=== PATIENT | male | born 1955 | race Two or more races ===

== ENCOUNTER 2017-02-25 21:49 | Inpatient (IN) | payer OTHER ==
[~2017-02-25] VITALS: Ht 172.7 cm; Wt 87.1 kg
--- NOTE | 2017-02-25 22:00 | NUR ---
PT A/OX4 BREATHING EFFORTLESSLY ON ROOM AIR, PT STATES HE HAS BEEN HVAING CP X 2 SDAYS BUT HAS BEEN GETTING WORSE TODAY, IV PLACED PRIOR TO ARRIVAL BY EMS, PT GIVEN ASPIRIN AND NITRO PRIOR TO ARRIVAL, PT ON MONITOR, IN GOWN MD AT BEDSIDE WILL CONTINUE TO MONITOR.
[2017-02-25] MEDS ORDERED: DILTIAZEM HCL 25 MG IV ONE (22:13)
[2017-02-25] MEDS ORDERED: DILTIAZEM HCL 25 MG IV IV ONE (22:30)
[2017-02-25 22:39] LABS: BASOPHILS # (AUTO) 0.1 /CMM (0.0-0.2); BASOPHILS % (AUTO) 0.9 % (0.0-2.0); EOSINOPHILS # (AUTO) 0.2 /CMM (0.0-0.7); EOSINOPHILS % (AUTO) 2.3 % (0.0-6.0); HEMATOCRIT 44 % (39-51); HEMOGLOBIN 13.7 g/dL (13.5-17.5); LYMPHOCYTES # (AUTO) 2.7 /CMM (0.8-4.8); LYMPHOCYTES % (AUTO) 31.2 % (20.0-44.0); MEAN CORPUSCULAR HEMOGLOBIN 24 PG (26.0-33.0); MEAN CORPUSCULAR HGB CONC 32 g/dl (31.0-36.0); MEAN CORPUSCULAR VOLUME 77 fL (80-96); MONOCYTES # (AUTO) 1.1 /CMM (0.1-1.30); MONOCYTES % (AUTO) 12.4 % (2.0-12.0); NEUTROPHILS # (AUTO) 4.6 /CMM (1.8-8.9); NEUTROPHILS % (AUTO) 53.2 % (43.0-81.0); PLATELET COUNT (AUTO) 219 /CMM (150-450); RDW COEFFICIENT OF VARIATION 21.1 (11.5-15.0); RED BLOOD CELL COUNT(AUTO) 5.67 MIL/uL (4.5-6.0); WHITE BLOOD COUNT (AUTO) 8.7 K/uL (4.3-11.0)
[2017-02-25 22:51] LABS: CALCIUM, SERUM 9.2 mg/dL (8.5-10.1); CARBON DIOXIDE 27 mmol/L (21-32); CHLORIDE 100 mmol/L (98-107); CREATININE 1.1 mg/dL (0.6-1.3); GFR 69 mL/min (>60); GLUCOSE 92 mg/dL (74-106); POTASSIUM 4.1 mmol/L (3.5-5.1); SODIUM SERUM 136 mmol/L (136-145); UREA NITROGEN, BLOOD 18 mg/dL (7-18)
[2017-02-25 22:58] LABS: TROPONIN I < 0.017 ng/mL (0.00-0.056)
[2017-02-25 23:04] LABS: B-TYPE NATRIURETIC PEPTIDE 14171 PG/ML (0-125)
[2017-02-25] MEDS ORDERED: FUROSEMIDE 40 MG/4 ML VIAL ONE (23:05)
[2017-02-25] MEDS ORDERED: FUROSEMIDE 40 MG/4 ML VIAL IV STA (23:06)
[2017-02-25 23:08] LABS: INR 1.2 (0.87-1.13)
--- NOTE | 2017-02-25 23:23 | NUR ---
PT STATES HE IS FEELING BETTER, MD MADE AWARE WILL CONTINUE TO MONITOR.
--- NOTE | 2017-02-25 23:55 | NUR ---
TELE/RN RECEIVE PATIENT FROM [facility] AWAKE, ALERT, ORIENTED, WITH C/O TOLERABLE PAIN LEVEL IN THE RIGHT CHEST, NO DISTRESS NOTED, VITAL SIGNS STABLE. DR. SHORT AT BEDSIDE AT THIS TIME TALKING TO THE PATIENT. AFTER DR. SHORT LEFT THE ROOM, ADMISSION ASSESSMENT WAS DONE. PHYSICAL ASSESSMENT WAS DONE, PLAN OF CARE DISCUSSED, VERBALIZED UNDERSTANDING AND AGREEMENT. TAUGHT THE USE OF CALL LIGHT AND PLACED AT BEDSIDE WITHIN REACH. FALL PRECAUTION INSTITUTED. WILL MONITOR.
[2017-02-26] VITALS (7 sets, daily range): BP systolic 104–115; BP diastolic 66–80
[2017-02-26] MEDS ORDERED: Z GUARD REMEDY 2 OZ OINT TP PRN
[2017-02-26] MEDS ORDERED: MAGNESIUM HYDROXIDE 30 ML UDC PO PRN
[2017-02-26] MEDS ORDERED: MAG HYDROX/AL HYDROX/SIMETH 30 ML UDC PO PRN
[2017-02-26] MEDS ORDERED: ACETAMINOPHEN 325 MG TABLET PO PRN
[2017-02-26] MEDS ORDERED: ZOLPIDEM TARTRATE 5 MG TABLET PO PRN
[2017-02-26] MEDS ORDERED: MORPHINE SULFATE INJ 2 MG/ML DISP.SYRIN IV PRN
[2017-02-26] MEDS ORDERED: ENOXAPARIN SODIUM 40 MG/0.4 ML DISP.SYRIN SQ SCH
[2017-02-26] MEDS ORDERED: ONDANSETRON HCL/PF 4 MG/2 ML VIAL IVP PRN
[2017-02-26] MEDS ORDERED: HYDROCODONE/APAP 5/325MG 1 EACH TABLET PO PRN
[2017-02-26] MEDS ORDERED: ENOXAPARIN SODIUM 40 MG/0.4 ML DISP.SYRIN SQ ONE (00:58)
--- NOTE | 2017-02-26 04:20 | NUR ---
TELE/RN APPEAR SLEEPING, APPEAR COMFORTABLE, BREATHING EVEN AND UNLABORED. CALL LIGHT IN REACH. WILL CONTINUE TO MONITOR.
[2017-02-26 07:24] LABS: BASOPHILS # (AUTO) 0.1 /CMM (0.0-0.2); BASOPHILS % (AUTO) 1.1 % (0.0-2.0); EOSINOPHILS # (AUTO) 0.3 /CMM (0.0-0.7); EOSINOPHILS % (AUTO) 3.9 % (0.0-6.0); HEMATOCRIT 40 % (39-51); HEMOGLOBIN 12.7 g/dL (13.5-17.5); LYMPHOCYTES # (AUTO) 2.8 /CMM (0.8-4.8); LYMPHOCYTES % (AUTO) 35.3 % (20.0-44.0); MEAN CORPUSCULAR HEMOGLOBIN 24 PG (26.0-33.0); MEAN CORPUSCULAR HGB CONC 32 g/dl (31.0-36.0); MEAN CORPUSCULAR VOLUME 77 fL (80-96); MONOCYTES # (AUTO) 0.9 /CMM (0.1-1.30); MONOCYTES % (AUTO) 11.9 % (2.0-12.0); NEUTROPHILS # (AUTO) 3.8 /CMM (1.8-8.9); NEUTROPHILS % (AUTO) 47.8 % (43.0-81.0); PLATELET COUNT (AUTO) 193 /CMM (150-450); RDW COEFFICIENT OF VARIATION 21.3 (11.5-15.0); RED BLOOD CELL COUNT(AUTO) 5.21 MIL/uL (4.5-6.0); WHITE BLOOD COUNT (AUTO) 7.9 K/uL (4.3-11.0)
[2017-02-26 08:07] LABS: ALBUMIN 3.3 g/dL (3.4-5.0); BILIRUBIN,TOTAL 1.4 mg/dL (0.2-1.0); CALCIUM, SERUM 8.4 mg/dL (8.5-10.1); CREATININE 0.9 mg/dL (0.6-1.3); MAGNESIUM 1.7 mg/dL (1.8-2.4); PHOSPHORUS 3.9 mg/dL (2.5-4.9); TOTAL PROTEIN, SERUM 7.3 g/dL (6.4-8.2)
[2017-02-26 08:09] LABS: THYROID STIMULATING HORMONE 1.172 uIU/mL (0.358-3.74)
[2017-02-26] MEDS ORDERED: FUROSEMIDE 40 MG/4 ML VIAL IV SCH (09:00)
[2017-02-26] MEDS: PANTOPRAZOLE 40 MG TABLET.DR PO SCH (09:37)
[2017-02-26] MEDS ORDERED: REGADENOSON 0.4 MG/5 ML DISP.SYRIN IVP ONE (10:30)
--- NOTE | 2017-02-26 12:01 | NUR ---
rn nOTES vERIFIED PATIENT'S UNDERSTANDING ON THE RISK AND BENEFIT OF nm MYOCARDIAL STRESS TEST EXPLAINED BY DR. MALDONADO, CONSENT SECURED.
[2017-02-26] MEDS: CARVEDILOL 12.5 MG TABLET PO SCH ×2 (12:06→21:25)
[2017-02-26] MEDS ORDERED: IV SET PRIMARY PUMP SET 1 EA INFUS.SET MC ONE (13:58)
[2017-02-26] MEDS: Magnesium 1GM/D5W 100ML PREMIX 100 ML IV SCH ×2 (14:02→15:50)
--- NOTE | 2017-02-26 19:05 | NUR ---
RN NOTES RECEIVED PT AWAKE, HOB ELEVATED, PT ALERT AND ORIENTED X 2-3, DENIES ANY PAIN AND DISCOMFORT. PT APPEARS COMFORTABLE IN BED, NO SOB, NOT IN DISTRESS, TOLERATING ROOM AIR. IV ACCESS ON RIGHT FOREARM PATENT AND INTACT. ASSISTED TO THE BATHROOM. FALL PRECAUTION OBSERVED. KEPT COMFORTABLE AND ATTENDED. WILL CONTINUE TO MONITOR PT.
[2017-02-26] MEDS: ENOXAPARIN SODIUM 40 MG/0.4 ML DISP.SYRIN SQ SCH (21:25)
--- NOTE | 2017-02-26 21:25 | NUR ---
RN NOTES BLOOD PRESSURE CHECKED 115/80, HR 106 DUE COREG 12.5 MG TAB GIVEN PO. WILL CONTINUE TO MONITOR PT.
--- NOTE | 2017-02-27 01:22 | NUR ---
RN NOTES PT HAS DIFFICULTY SLEEPING, AMBIEN 5 MG TAB GIVEN PO. WILL CONTINUE TO MONITOR.
--- NOTE | 2017-02-27 06:42 | NUR ---
RN NOTES VISITED BY DR MALDONADO, SEEN AND EXAMINED PT WITH NEW ORDERS MADE. PT WILL START K-DUR 20 MEQ TAB PO QD, LASIX 40 MG TAB PO QD AND PRINIVIL 10 MG TAB PO QD., ALL TO BE STARTED AT 9AM TODAY. PT AWARE. NOTED AND CARRIED OUT.
--- NOTE | 2017-02-27 06:58 | NUR ---
RN NOTES PT ASLEEP, APPEARS COMFORTABLE IN BED, NO SOB, NOT IN DISTRESS, ON ROOM AIR AND TOLERATED WELL. VITAL SIGNS STABLE, NO COMPLAIN OF CHEST PAIN, NO EPISODE OF NAUSEA AND VOMITING. ALL NEEDS ATTENDED. ASSISTED TO THE BATH ROOM, FALL PRECAUTION OBSERVED.WILL ENDORSE TO MORNING RN FOR CONTINUITY OF CARE.
--- NOTE | 2017-02-27 07:15 | NUR ---
MS/RN AM NOTES RECEIVED PATIENT IN BED, SLEEPING, WITHOUT EVIDENCE OF PAIN OR SOB, COMFORTABLE, ON RA, NO DISTRESS NOTED. BED IN LOW POSITION, 2 SR UP FOR SAFETY.. IV LINE ON RIGHT HAND INTACT, NO REDNESS. APPEARS COMFORTABLE IN THE BED, WITH CALL LIGHT WITHIN EASY REACH. WILL CONTINUE TO MONITOR ACCORDINGLY.
[2017-02-27 07:33] LABS: CALCIUM, SERUM 8.6 mg/dL (8.5-10.1); CREATININE 0.9 mg/dL (0.6-1.3); MAGNESIUM 2.1 mg/dL (1.8-2.4); POTASSIUM 4.2 mmol/L (3.5-5.1)
[2017-02-27 08:00] VITALS: BP_SYST 108; BP_SYST 118; BP_DIAS 63; BP_DIAS 69
[2017-02-27] MEDS ORDERED: FUROSEMIDE 40 MG TABLET PO SCH (09:00)
[2017-02-27] MEDS: CARVEDILOL 12.5 MG TABLET PO SCH ×2 (09:24→21:00)
[2017-02-27] MEDS: POTASSIUM CHLORIDE 20 MEQ TAB.PRT.SR PO SCH (09:25)
[2017-02-27] MEDS: LISINOPRIL (10MG) 10 MG TABLET PO SCH (09:25)
[2017-02-27] MEDS: PANTOPRAZOLE 40 MG TABLET.DR PO SCH (09:25)
--- NOTE | 2017-02-27 10:31 | NUR ---
Social service consult requested by Med Surg KRISTYN Mcmillan for homelessness. Per H&P report by Dr. Lama, pt. is a 61 year old male with PMHx of chronic AFIB, Systolic heart failure, Hepatitis C infection, HTN, with left sided chest discomfort and palpitations. Patient is homeless and lives in the street currently. He stated that earlier today, he has had increasing fatigue and left sided chest discomfort along with feeling like his " heart was about to pop out of his chest". He has intermittent sob and dyspnea on exertion associated with his symptoms. Patient is not compliant with his medications for his chronic medical conditions due to the lack of funds. Pt. was admitted to [facility] for AFib with RVR. SW met with pt. bedside. Pt. is A&O x 4. Pt' s appearance was disheveled. Pt. stated he has been homeless for the past 10 years. Pt. lives on the streets. Pt. states he has no source of income. Pt's family resides in [place]. Pt. has a history of Depression, Anxiety, Bipolar Schizophrenia and has a psychiatrist in [place]. Pt. drinks alcohol. Last beer pt. had was several weeks ago. Pt. use to drink vodka a year ago but stopped due to his health deteriorating. Pt. denies using drugs at this time but has used methamphetamines and ecstasy two months ago. Pt. smokes Marijuana when he has some money to buy some. SW to assist pt. in getting some clothing, since pt. has no clean clothes. Pt. states he would like to be discharged to [address] [facility] [place] [address] once medically cleared. SW to offer pt. the following resources upon discharge : Food matias, Homeless Resource Directory that includes various resources such as hot meals, showers, emergency housing, list of Drop-In centers and shelters and Mental Health clinics. EDGAR updated pillowcase cutter Cherie regarding pt's discharge plan. Addendum: 04/05/17 at 1424 by THADDEUS HERNÁNDEZ EDGAR met with pt. bedside and gave him some shoes per his request. However, there were no pants available to give to patient. Pt. shook EDGAR's hand in appreciation.
--- NOTE | 2017-02-27 15:02 | NUR ---
MS/RN NOTES DIET CHANGED TO PUREE PER PATIENT'S REQUEST, NOT HAVING TEETH TO CHEW THE MEAL
[2017-02-27 16:00] VITALS: BP 106/67
--- NOTE | 2017-02-27 19:10 | NUR ---
RN NOTES RECEIVED PT AWAKE, OUT OF BED, SITTING IN THE CHAIR, EYES CLOSED TALKING TO HIMSELF. PT DENIES ANY PAIN AND DISCOMFORT, NO SOB, NOT IN DISTRESS, TOLERATING ROOM AIR. IV ACCESS ON RIGHT FOREARM PATENT AND INTACT. ASSISTED TO THE BATHROOM. FALL PRECAUTION OBSERVED. KEPT COMFORTABLE AND ATTENDED. WILL CONTINUE TO MONITOR PT.
--- NOTE | 2017-02-27 19:10 | NUR ---
MS/RN AM NOTES PATIENT IS IN THE BED, AWAKE, ALERT, WITHOUT SOB, NO CHEST, OR DISTRESS, COMFORTABLY RESTING IN THE BED, ON ROOM AIR. IV LINE RIGHT HAND IS INTACT, PATENT. KEPT CLEANED, DRY, SHOWER WAS GIVEN, TOLERATED WELL. NEEDS MET IN TIMELY MANNER, WITH CALL LIGHT WITHIN EASY REACH. ENDORSED TOP THE CHECK CLERK NURSE ACCORDINGLY.
[2017-02-27 20:00] VITALS: BP 94/66
[2017-02-27] MEDS: ENOXAPARIN SODIUM 40 MG/0.4 ML DISP.SYRIN SQ SCH (21:00)
--- NOTE | 2017-02-27 21:50 | NUR ---
RN NOTES PT REFUSED TO TAKE HIS LOVENOX 40 MG. PER PT HE WILL GO HOME TOMORROW HE DOESN'T NEED TO TAKE HIS MEDS. RISK AND BENEFITS EXPLAINED TO THE PT AND STRONGLY REFUSED TO HAVE LOVENOX GIVEN. COREG 12.5 MG TAB NOT GIVEN BP 97/66. WILL CONTINUE TO MONITOR PT.
[2017-02-27 22:00] VITALS: BP 97/66
--- NOTE | 2017-02-28 01:00 | NUR ---
RN NOTES PT IS NOT SLEEPING, KEEPS ON GETTING UP , DENIES PAIN AND DISCOMFORT. OFFERED AMBIEN PT STRONGLY REFUSED.
--- NOTE | 2017-02-28 05:50 | NUR ---
RN NOTES PT REFUSED FOR BLOOD DRAW, VERBALIZIMG HE'S FOR DISCHARGE TODAY AND NO NEED FOR LAB TEST.
--- NOTE | 2017-02-28 06:51 | NUR ---
RN NOTES PT AWAKE, NO SOB, NO SIGNS OF DISTRESS AND DISCOMFORT NOTED, TOLERATING ROOM AIR. VITAL SIGNS STABLE, NO COMPLAIN OF PAIN, NO EPISODE NAUSEA AND VOMITING. PT IS AWAKE AND UP MOST OF THE SHIFT. REFUSED TO TAKE MEDS AND REFUSED BLOOD DRAW, PER PT HE'S GOING HOME TODAY. ALL NEEDS ATTENDED. WILL ENDORSE TO MORNING RN FOR CONTINUITY OF CARE.
--- NOTE | 2017-02-28 07:35 | NUR ---
RN OPEN NOTES RECEIVED REPORT FROM SCOOP DRIVER NURSE. PATIENT IS SITTING IN A CHAIR, ALERT AND ORIENTED TO NAME, PLACE AND TIME. NO SIGNS OR SYMPTOMS OF DISTRESS. IV SITE IS POTENT AND INTACT. WILL CONTINUE TO MONITOR, ASSESS AND EDUCATE PATIENT THROUGHOUT MY SHIFT.
[2017-02-28 08:00] VITALS: BP 114/66
[2017-02-28] MEDS ORDERED: CARV12.52 PO (08:54)
[2017-02-28] MEDS ORDERED: LISI10TA59 PO (08:54)
[2017-02-28] MEDS ORDERED: SPIR25TA PO (08:54)
[2017-02-28] MEDS: LISINOPRIL (10MG) 10 MG TABLET PO SCH (09:00)
[2017-02-28] MEDS ORDERED: SPIRONOLACTONE 25 MG TABLET PO SCH (09:00)
[2017-02-28 09:08] VITALS: BP 114/66
[2017-02-28] MEDS: POTASSIUM CHLORIDE 20 MEQ TAB.PRT.SR PO SCH (09:08)
[2017-02-28] MEDS: CARVEDILOL 12.5 MG TABLET PO SCH (09:08)
[2017-02-28] MEDS: PANTOPRAZOLE 40 MG TABLET.DR PO SCH (09:08)
--- NOTE | 2017-02-28 09:23 | NUR ---
RN NOTES 0900 MEDS HELD THE LISINOPRIL. THREE BLOOD PRESSURE MEDS WERE SCHEDULE, 2 WERE GIVEN. WILL REASSESS PATIENT BLOOD PRESSURE IN AN HOUR AND WILL ADMINISTER IF BP WITHIN ACCEPTABLE LEVEL.
--- NOTE | 2017-02-28 11:00 | NUR ---
WELDING MACHINE TENDER NOTES PATIENT DISCHARGE ORDERS RECEIVED AND CARRIED OUT. PATIENT IS DISCHARGE AT STABLE CONDITION. VIRAL SIGNS ARE STABLE. NO SIGN AND SYMPTOMS OF DISTRESS. IV SITE REMOVED. ID BAND REMOVED. PATIENT WAS ESCORTED DOWNSTAIR TO THE MAIN LOBBY WITH A WHEELCHAIR BY AN RN. PATIENT WAS DISCHARGED TO A PENITENTIARY AND TRANSPORTED BY A TAXI PROVIDED BY [facility]. PATIENT RECEIVED ALL DISCHARGE INSTRUCTION AND VERBALIZED UNDERSTANDING.
--- NOTE | 2017-02-28 11:26 | NUR ---
EDGAR met with pt. bedside to discuss discharge plan. Yesterday pt. wanted to go to an address in [place] however, today pt. is willing to go to a skilled nursing. EDGAR contacted [facility] located at [address] [place] [id number] and spoke to Heraclio who informed SW to send pt. to the [facility] between 12PM -2:30PM. EDGAR informed pt. that he will be going to the [facility] and will be provided with a taxi to transport him there. Pt. accepted the following homeless resources: Homeless Resource Directory that included Food [place], emergency housing resources, showers & hot meals, health resources; Drop-In shelters and centers and [employer]. Homeless patient waiver was signed by pt. and placed in chart.
== END 2017-02-28 11:10 | disposition home or self-care (01) | DRG 201 ==
LOC: ER 21:50 → TELE 22:52 → MED 02-26 12:40
PROVIDERS: ADMIT Family Medicine; ATTEND Family Medicine
DX: I48.91 Unspecified atrial fibrillation (principal); I50.23 Acute on chronic systolic (congestive) heart failure; D68.59 Other primary thrombophilia; E44.1 Mild protein-calorie malnutrition; E83.42 Hypomagnesemia; B19.20 Unspecified viral hepatitis C without hepatic coma; Z59.0 Homelessness; Z91.14 Patient's other noncompliance with medication regimen; F17.200 Nicotine dependence, unspecified, uncomplicated; I48.2 Chronic atrial fibrillation; I11.0 Hypertensive heart disease with heart failure; F17.210 Nicotine dependence, cigarettes, uncomplicated; Z68.29 Body mass index [BMI] 29.0-29.9, adult
CPT/HCPCS: 36415; 71010-TC; 80048-TC; 80053-TC; 80061-TC; 83735-TC; 83880; 84100-TC; 84443-TC; 84484-TC; 85025-TC; 85730-TC; 87081-TC; 93307-TC; A4606; A9502; J1650; J1940; J2785; J3475; J3490; Z7610